=== PATIENT | female | born 1975 | race Hispanic/Latino ===

== ENCOUNTER 2018-02-01 14:49 | Emergency (ER) | payer BC | END 2018-02-01 15:59 | disposition home or self-care (01) | LOC: EDH 14:49 | DX: S76.011A Strain of muscle, fascia and tendon of right hip, initial encounter (principal); S83.8X1A Sprain of other specified parts of right knee, initial encounter; S39.012A Strain of muscle, fascia and tendon of lower back, initial encounter; Z90.49 Acquired absence of other specified parts of digestive tract; Z98.890 Other specified postprocedural states; W01.0XXA Fall on same level from slipping, tripping and stumbling without subsequent striking against object, initial encounter; Y93.01 Activity, walking, marching and hiking; Y92.009 Unspecified place in unspecified non-institutional (private) residence as the place of occurrence of the external cause; Y99.8 Other external cause status ==